=== PATIENT | male | born 1950 | race Caucasian/White ===

== ENCOUNTER 2024-03-06 10:09 | Emergency (ER) | payer MEDICARE ==
[~2024-03-06] VITALS: Ht 167.6 cm; Wt 127.0 kg
[~2024-03-06 10:09] MED LIST: VENTOLIN HFA IN
[2024-03-06] MEDS ORDERED: KETOROLAC TROMETHAMINE 15 MG/ML SDV IV ONE (10:45)
[2024-03-06] MEDS ORDERED: ONDANSETRON HCl 4 MG/2 ML SDV IV ONE (10:45)
[2024-03-06 10:47] LABS: BASO% 0.7 % (0-3); EOS% 0.3 % (0-8); HEMOGLOBIN 16.3 g/dl (14.0-18.0); IMMATURE GRANULOCYTES 0.4 % (0.0-5.0); LYMPH% 31.1 % (15-41); MEAN CORPUSCULAR HGB 27.8 pG CALC (26.0-32.0); MONO% 6.3 % (2-13); NEUT# 7.05 thou/uL (1.82-7.42); NEUT% 61.2 % (42-76); RED BLOOD COUNT 5.86 mill/uL (4.70-6.10); RED CELL DISTRI WIDTH 13.7 % (11.5-15.5)
[2024-03-06 11:05] LABS: ALBUMIN 4.9 g/dL (3.2-5.0); ALKALINE PHOSPHATASE 72 u/l (38-126); ANION GAP 15 (6-22 (CALC)); BUN 16 mg/dL (8-23); BUN/CREATININE RATIO 15 (12-20 (CALC)); CARBON DIOXIDE 28 mmol/l (22-30); CHLORIDE 101 mmol/l (95-108); ESTIMATED GFR 79 ML/MIN (>=90 (CALC)); LIPASE 75 u/l (23-300); POTASSIUM 4.4 mmol/l (3.5-5.1); SGOT/AST 31 u/l (19-48); SODIUM 140 mmol/l (137-146); TOTAL PROTEIN 8.3 g/dL (6.3-8.2)
[2024-03-06 11:09] VITALS: BP 155/93
[2024-03-06 11:15] VITALS: BP 156/94
[2024-03-06 11:30] VITALS: BP 145/89
[2024-03-06 11:45] VITALS: BP 136/87
[2024-03-06] MEDS ORDERED: ZOFRAN4 MG/TAB PO (12:59)
[2024-03-06 13:08] VITALS: BP 136/87
== END 2024-03-06 13:21 | disposition home or self-care (01) ==
LOC: ED 10:09
PROVIDERS: Family Medicine
DX: R11.2 Nausea with vomiting, unspecified (principal); I10 Essential (primary) hypertension; E11.9 Type 2 diabetes mellitus without complications; E03.9 Hypothyroidism, unspecified; J45.909 Unspecified asthma, uncomplicated; E66.9 Obesity, unspecified; Z20.822 Contact with and (suspected) exposure to COVID-19
CPT/HCPCS: J1885; J2405; Q9967

== ENCOUNTER 2024-05-13 18:38 | Emergency (ER) | payer MEDICARE ==
[~2024-05-13] VITALS: Ht 162.6 cm; Wt 118.0 kg
[~2024-05-13 18:38] MED LIST changes: +ZOFRAN4 MG/TAB PO
[2024-05-13] MEDS ORDERED: AZITHROMYCIN 250 MG/TAB PO ONE (20:15)
[2024-05-13] MEDS ORDERED: LEVOCETIRIZINE D5 MG PO (20:17)
[2024-05-13] MEDS ORDERED: ALLERGY RE50 MCG/ACT (20:17)
[2024-05-13] MEDS ORDERED: ZITHROMAX250 MG PO (20:18)
[2024-05-13 20:40] VITALS: BP 176/91
== END 2024-05-13 20:40 | disposition home or self-care (01) ==
LOC: ED 18:38
DX: J06.9 Acute upper respiratory infection, unspecified (principal); E11.9 Type 2 diabetes mellitus without complications; E03.9 Hypothyroidism, unspecified; J45.909 Unspecified asthma, uncomplicated; Z20.822 Contact with and (suspected) exposure to COVID-19